=== PATIENT | female | born 1975 | race Caucasian/White ===

== ENCOUNTER 2019-05-09 08:50 | Emergency (ER) | payer BC ==
[2019-05-09] MEDS ORDERED: FENTANYL CITR 100 MCG/2 ML ONE ×2 (10:20→12:10)
[2019-05-09 10:21] LABS: Absolute Lymphocytes (CBC) 1.8 K/uL (0.7-4.9); Basophils % 0.4 % (0-1.3); Hematocrit 36.7 % (36.0-45.0); Lymphocytes % 16.1 % (15.3-44.8); MPV 8.9 fL (7.6-11.3); RBC Red Blood Cell Count 4.13 M/uL (3.86-4.86)
[2019-05-09] MEDS ORDERED: ONDANSETRON 4 MG/2 ML VIAL ONE ×2 (10:21→12:11)
[2019-05-09 10:32] LABS: Albumin 3.8 g/dL (3.4-5.0); Bilirubin Direct 0.2 mg/dL (0-0.2); Bilirubin Total 0.5 mg/dL (0.2-1.0); Potassium 3.8 mmol/L (3.5-5.1); Protein, Total 8.1 g/dL (6.4-8.2)
[2019-05-09 11:08] LABS: Urine Blood 1+ (NEG); Urine Glucose NEGATIVE (NEG); Urine Protein NEGATIVE (NEG); Urine Specific Gravity 1.025 (1.005-1.030); Urine pH 5.5 (5.0-7.0)
--- NOTE | 2019-05-09 11:24 | RAD REPORT ---
EXAM DESCRIPTION: CTAbdomen Pelvis W Contrast - 05/09/2019 11:07 am CLINICAL HISTORY: Abdominal pain. ABD PAIN COMPARISON: No comparisons TECHNIQUE: Biphasic CT imaging of the abdomen and pelvis was performed with 100 ml non-ionic IV cont rast. All CT scans are performed using dose optimization technique as appropriate and may include automated exposure control or mA/KV adjustment according to patient size. FINDINGS: The lung bases are clear. The liver, spleen, pancreas, adrenal glands and kidneys are within normal limits. 12 mm cyst right ki dney. No bowel obstruction, free air, free fluid or abscess. In the region of the splenic flexure of the co [place] moderate wall thickening and inflammation is seen. Several diverticula are present in this region of the colon. The appendix is normal. No evidence of significant lymphadenopathy. No suspicious bony findings. IMPRESSION: Mild to moderate acute diverticulitis is seen involving splenic flexure the colon. No ab scess is evident.
[2019-05-09] MEDS ORDERED: METRONIDAZOLE 500mg IVPB 500 MG/100 ML BAG IV ONE (11:58)
--- NOTE | 2019-05-09 12:52 | ER ---
Nurse's Notes [facility] Name: Deloris Roy Age: 43 yrs Sex: Female : 1975 Arrival Date: 05/09/2019 Time: 08:56 Bed 15 Private MD: Diagnosis: Diverticulitis of large intestine without perforation or abscess without bleeding Presentation: 05/09 09:11 Presenting complaint: Patient states: Chris started with constipation and bloating, iw was taking stool softeners and now pain is worse, radiating from LUQ around to back, now has diarrhea. Transition of care: patient was not received from another setting of care. Onset of symptoms was May 05, 2019. Risk Assessment: Do you want to hurt yourself or someone else? Patient reports no desire to harm self or others. Initial Sepsis Screen: Does the patient meet any 2 criteria? No. Patient's initial sepsis screen is negative. Does the patient have a suspected source of infection? No. Patient's initial sepsis screen is negative. Care prior to arrival: None. 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 - Coronavirus screen:: The patient has NOT traveled to [place], [place], or [place] in the past 14 days. Proceed with normal triage process as indicated. - Social history:: Smoking status: Patient reports the use of cigarette tobacco products, denies chronic smoking, but will smoke occasionally. - Ebola Screening: : Patient negative for fever greater than or equal to 101.5 degrees Fahrenheit, and additional compatible Ebola Virus Disease symptoms Patient denies exposure to infectious person Patient denies travel to an Ebola-affected area in the 21 days before illness onset No symptoms or risks identified at this time. Screenin:41 Abuse screen: Denies threats or abuse. Denies injuries from another. Nutritional hb screening: No deficits noted. Tuberculosis screening: No symptoms or risk factors identified. Fall Risk None identified. Assessment: 10:07 General: Appears in no apparent distress. Behavior is calm, cooperative. Pain: Pain hb currently is 7 out of 10 on a pain scale. Neuro: Level of Consciousness is awake, alert, obeys commands, Oriented to person, place, time, situation. Cardiovascular: Capillary refill < 3 seconds Patient's skin is warm and dry. Respiratory: Airway is patent Respiratory effort is even, unlabored, Respiratory pattern is regular, symmetrical, Breath sounds are clear bilaterally. GI: Abdomen is non-distended, Bowel sounds present X 4 quads. Abd is soft and non tender X 4 quads. Reports upper abdominal pain, bloating, diarrhea, nausea. : No signs and/or symptoms were reported regarding the genitourinary system. EENT: No signs and/or symptoms were reported regarding the EENT system. Derm: Skin is pink, warm \T\ dry. Musculoskeletal: No signs and/or symptoms reported regarding the musculoskeletal system. 11:00 Reassessment: Patient appears in no apparent distress at this time. No changes from hb previously documented assessment. Patient and/or family updated on plan of care and expected duration. Pain level reassessed. 12:00 Reassessment: Patient appears in no apparent distress at this time. No changes from hb previously documented assessment. Patient and/or family updated on plan of care and expected duration. Pain level reassessed. 12:25 Reassessment: Pt c/o pain 7/10, ERIC Crockett notified, repeat fentanyl and zofran hb administered as ordered. Vital Signs: 09:14 BP 123 / 67; Pulse 89; Resp 16; Temp 97.7; Pulse Ox 98% on R/A; Weight 107.5 kg; Height iw 5 ft. 6 in. (167.64 cm); Pain 7/10; 09:42 Temp 97.9(O); hb 10:57 BP 104 / 57; Pulse 82; Resp 15; Pulse Ox 100% on R/A; Pain 4/10; hb 12:40 BP 118 / 64; Pulse 80; Resp 15; Pulse Ox 100% on R/A; hb 09:14 Body Mass Index 38.25 (107.50 kg, 167.64 cm) iw ED Course: 08:56 Patient arrived in ED. mr 09:12 Triage completed. iw 09:14 Arm band placed on. iw 09:41 Isabella Walter, RN is Primary Nurse. hb 09:46 Bon Arango PA is PHCP. jr8 09:46 Destin Marion MD is Attending Physician. jr8 10:03 Lipase Sent. mh5 10:03 Hepatic Function Sent. mh5 10:03 Creatinine for Radiology Sent. mh5 10:03 CBC with Diff Sent. mh5 10:03 Basic Metabolic Panel Sent. mh5 10:03 Urine collected: clean catch specimen, clear. mh5 10:04 Patient has correct armband on for positive identification. Placed in gown. Bed in low mh5 position. Call light in reach. Side rails up X 1. Adult w/ patient. Warm blanket given. Pulse ox on. NIBP on. 10:04 Inserted saline lock: 20 gauge in right antecubital area, using aseptic technique. hb Blood collected. 11:06 CT Abd/Pelvis - IV Contrast Only In Process Unspecified. EDMS 12:51 Francisco Witt MD is Referral Physician. jr8 13:02 No provider procedures requiring assistance completed. IV discontinued, intact, hb bleeding controlled, No redness/swelling at site. Pressure dressing applied. Administered Medications: 10:23 Drug: fentaNYL (PF) 50 mcg Route: IVP; Site: right antecubital; hb 11:00 Follow up: Response: No adverse reaction hb 10:23 Drug: Zofran 4 mg Route: IVP; Site: right antecubital; hb 11:00 Follow up: Response: No adverse reaction hb 11:55 Drug: Cefepime 1 grams Route: IVPB; Rate: 200 ml/hr; Infused Over: 30 mins; Site: right hb antecubital; 12:35 Follow up: Response: No adverse reaction; IV Status: Completed infusion; IV Intake: hb 100ml 11:55 Drug: Flagyl 500 mg Volume: 100 ml; Route: IVPB; Rate: 200 ml/hr; Infused Over: 30 hb mins; Site: right antecubital; 12:35 Follow up: Response: No adverse reaction; IV Status: Completed infusion; IV Intake: hb 100ml 12:12 Drug: fentaNYL (PF) 50 mcg Route: IVP; Site: right antecubital; hb 13:00 Follow up: Response: No adverse reaction hb 12:12 Drug: Zofran 4 mg Route: IVP; Site: right antecubital; hb 13:00 Follow up: Response: No adverse reaction hb Intake: 12:35 IV: 100ml; Total: 100ml. hb 12:35 IV: 100ml; Total: 200ml. hb Outcome: 12:51 Discharge ordered by MD. dalal 13:02 Discharged to home ambulatory, with significant other. hb 13:02 Condition: stable 13:02 Discharge instructions given to patient, significant other, Instructed on discharge instructions, follow up and referral plans. medication usage, Demonstrated understanding of instructions, follow-up care, medications, Prescriptions given X 4. 13:02 Patient left the ED. hb Signatures: Dispatcher [employer] Kathy Cosme mr Laya Jeff RN RN Bon Torres PA PA jr8 Baxter, Heather, RN RN Diana Bui [facility]
--- NOTE | 2019-05-09 12:52 | EDPHYS ---
Physician Documentation [facility] Name: Deloris Roy Age: 43 yrs Sex: Female : 1975 Arrival Date: 05/09/2019 Time: 08:56 Bed 15 Private MD: ED Physician Destin Marion HPI: 05/09 10:06 This 43 yrs old Female presents to ER via Ambulatory with complaints of jr8 Abdominal Pain, Back Pain. 10:06 The patient presents with abdominal pain in the left upper quadrant, in the left lower jr8 quadrant. Onset: The symptoms/episode began/occurred acutely, 4 day(s) ago, and became worse. The symptoms radiate to left back. Associated signs and symptoms: Pertinent positives: diarrhea, nausea, Pertinent negatives: dysuria, fever, vomiting. The symptoms are described as stabbing. Modifying factors: The symptoms are alleviated by nothing, the symptoms are aggravated by nothing. Severity of pain: At its worst the pain was moderate in the emergency department the pain is unchanged. The patient has not experienced similar symptoms in the past. The patient has not recently seen a physician. 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 - Coronavirus screen:: The patient has NOT traveled to [place], [place], or [place] in the past 14 days. Proceed with normal triage process as indicated. - Social history:: Smoking status: Patient reports the use of cigarette tobacco products, denies chronic smoking, but will smoke occasionally. - Ebola Screening: : Patient negative for fever greater than or equal to 101.5 degrees Fahrenheit, and additional compatible Ebola Virus Disease symptoms Patient denies exposure to infectious person Patient denies travel to an Ebola-affected area in the 21 days before illness onset No symptoms or risks identified at this time. ROS: 10:06 Eyes: Negative for injury, pain, redness, and discharge, ENT: Negative for injury, jr8 pain, and discharge, Neck: Negative for injury, pain, and swelling, Cardiovascular: Negative for chest pain, palpitations, and edema, Respiratory: Negative for shortness of breath, cough, wheezing, and pleuritic chest pain, Back: Negative for injury and pain, MS/Extremity: Negative for injury and deformity, Skin: Negative for injury, rash, and discoloration, Neuro: Negative for headache, weakness, numbness, tingling, and seizure. 10:06 Abdomen/GI: Positive for abdominal pain, nausea, diarrhea. Exam: 10:06 Eyes: Pupils equal round and reactive to light, extra-ocular motions intact. Lids and jr8 lashes normal. Conjunctiva and sclera are non-icteric and not injected. Cornea within normal limits. Periorbital areas with no swelling, redness, or edema. ENT: Nares patent. No nasal discharge, no septal abnormalities noted. Tympanic membranes are normal and external auditory canals are clear. Oropharynx with no redness, swelling, or masses, exudates, or evidence of obstruction, uvula midline. Mucous membranes moist. Neck: Trachea midline, no thyromegaly or masses palpated, and no cervical lymphadenopathy. Supple, full range of motion without nuchal rigidity, or vertebral point tenderness. No Meningismus. Cardiovascular: Regular rate and rhythm with a normal S1 and S2. No gallops, murmurs, or rubs. Normal PMI, no JVD. No pulse deficits. Respiratory: Lungs have equal breath sounds bilaterally, clear to auscultation and percussion. No rales, rhonchi or wheezes noted. No increased work of breathing, no retractions or nasal flaring. Back: No spinal tenderness. No costovertebral tenderness. Full range of motion. Skin: Warm, dry with normal turgor. Normal color with no rashes, no lesions, and no evidence of cellulitis. MS/ Extremity: Pulses equal, no cyanosis. Neurovascular intact. Full, normal range of motion. Neuro: Awake and alert, GCS 15, oriented to person, place, time, and situation. Cranial nerves II-XII grossly intact. Motor strength 5/5 in all extremities. Sensory grossly intact. Cerebellar exam normal. Normal gait. 10:06 Abdomen/GI: Inspection: obese Bowel sounds: active, all quadrants, Palpation: soft, in all quadrants, moderate abdominal tenderness, in the left upper quadrant and left lower quadrant, mass, is not appreciated, rebound tenderness, is not appreciated, voluntary guarding, is not appreciated, involuntary guarding, is not appreciated, no appreciated organomegaly, Indicators: McBurney's point is not tender, Shepard's sign is negative, Rovsing's sign is negative, Liver: tenderness, is not appreciated. Vital Signs: 09:14 BP 123 / 67; Pulse 89; Resp 16; Temp 97.7; Pulse Ox 98% on R/A; Weight 107.5 kg; Height iw 5 ft. 6 in. (167.64 cm); Pain 7/10; 09:42 Temp 97.9(O); hb 10:57 BP 104 / 57; Pulse 82; Resp 15; Pulse Ox 100% on R/A; Pain 4/10; hb 12:40 BP 118 / 64; Pulse 80; Resp 15; Pulse Ox 100% on R/A; hb 09:14 Body Mass Index 38.25 (107.50 kg, 167.64 cm) iw MDM: 09:46 Patient medically screened. jr8 11:41 Data reviewed: vital signs, nurses notes, lab test result(s), radiologic studies, CT jr8 scan. Data interpreted: Pulse oximetry: on room air is 100 %. Interpretation: normal. Counseling: I had a detailed discussion with the patient and/or guardian regarding: the historical points, exam findings, and any diagnostic results supporting the discharge/admit diagnosis, lab results, radiology results, the need for outpatient follow up, a family practitioner, a service director, to return to the emergency department if symptoms worsen or persist or if there are any questions or concerns that arise at home. ED course: Patient feeling better. Abdomen soft and without localized peritoneal signs at this time. VS stable and without fever. Able to tolerate fluids. CT without abscess or perforation. Recommended inpatient IV antibiotic therapy but wants to try outpatient for the time being secondary to family constraints. I feel that this is reasonable at this time given labs, CT, and presentation of exam. Close return precautions given along with signs and symptoms to watch for that would indicate worsening of symptoms. Also explained dietary modifications for next several days. Patient good with this plan and knows to come back if worse . 05/09 09:47 Order name: Basic Metabolic Panel; Complete Time: 10:40 jr8 05/09 09:47 Order name: CBC with Diff; Complete Time: 10:24 jr8 05/09 09:47 Order name: Creatinine for Radiology; Complete Time: 10:40 05/09 09:47 Order name: Hepatic Function; Complete Time: 10:40 05/09 09:47 Order name: Lipase; Complete Time: 10:40 05/09 10:04 Order name: Urine Dipstick--Ancillary (enter results); Complete Time: 11:05/09 10:04 Order name: Urine --Ancillary (enter results); Complete Time: 11:05/09 10:05 Order name: CT Abd/Pelvis - IV Contrast Only; Complete Time: 11:32 05/09 09:47 Order name: IV Saline Lock; Complete Time: 10:03 05/09 09:47 Order name: Labs collected and sent; Complete Time: 10:05/09 09:47 Order name: Urine Test (obtain specimen); Complete Time: 10:05/09 09:47 Order name: Urine Dipstick-Ancillary (obtain specimen); Complete Time: 10: Administered Medications: 10:23 Drug: fentaNYL (PF) 50 mcg Route: IVP; Site: right antecubital; hb 11:00 Follow up: Response: No adverse reaction hb 10:23 Drug: Zofran 4 mg Route: IVP; Site: right antecubital; hb 11:00 Follow up: Response: No adverse reaction hb 11:55 Drug: Cefepime 1 grams Route: IVPB; Rate: 200 ml/hr; Infused Over: 30 mins; Site: right hb antecubital; 12:35 Follow up: Response: No adverse reaction; IV Status: Completed infusion; IV Intake: hb 100ml 11:55 Drug: Flagyl 500 mg Volume: 100 ml; Route: IVPB; Rate: 200 ml/hr; Infused Over: 30 hb mins; Site: right antecubital; 12:35 Follow up: Response: No adverse reaction; IV Status: Completed infusion; IV Intake: hb 100ml 12:12 Drug: fentaNYL (PF) 50 mcg Route: IVP; Site: right antecubital; hb 13:00 Follow up: Response: No adverse reaction hb 12:12 Drug: Zofran 4 mg Route: IVP; Site: right antecubital; hb 13:00 Follow up: Response: No adverse reaction hb Disposition: 16:48 Co-signature as Attending Physician, Destin Marion MD I agree with the assessment and kdr plan of care. Disposition: 05/09/19 12:51 Discharged to Home. Impression: Diverticulitis of large intestine without perforation or abscess without bleeding. - Condition is Stable. - Discharge Instructions: Diverticulitis. - Prescriptions for Zofran ODT 4 mg Oral tablet,disintegrating - take 1 tablet by ORAL route every 8 hours As needed; 12 tablet. tramadol 200 mg Oral capsule,ER biphase 24 hr 25- 75 - take 1 capsule by ORAL route once daily; 12 capsule. Cipro 500 mg Oral Tablet - take 1 tablet by ORAL route every 12 hours for 10 days; 20 tablet. Flagyl 500 mg Oral Tablet - take 1 tablet by ORAL route every 6 hours for 10 days; 40 tablet. - Medication Reconciliation Form, Thank You Letter, Antibiotic Education, Prescription Opioid Use form. - Follow up: Francisco Witt; When: 7 - 10 days; Reason: Recheck today's complaints, Continuance of care, Re-evaluation by your physician. - Problem is new. - Symptoms have improved. Signatures: Dispatcher [employer] EDMS Destin Marion MD MD [facility] Laya Jeff RN RN Bon Arango PA PA [facility] Isabella Walter RN RN Corrections: (The following items were deleted from the chart) 13:02 12:51 05/09/2019 12:51 Discharged to Home. Impression: Diverticulitis of large hb intestine without perforation or abscess without bleeding. Condition is Stable. Discharge Instructions: Diverticulitis. Prescriptions for Zofran ODT 4 mg Oral tablet,disintegrating - take 1 tablet by ORAL route every 8 hours As needed; 12 tablet, tramadol 200 mg Oral capsule,ER biphase 24 hr 25-75 - take 1 capsule by ORAL route once daily; 12 capsule, Cipro 500 mg Oral Tablet - take 1 tablet by ORAL route every 12 hours for 10 days; 20 tablet, Flagyl 500 mg Oral Tablet - take 1 tablet by ORAL route every 6 hours for 10 days; 40 tablet. and Forms are Medication Reconciliation Form, Thank You Letter, Antibiotic Education, Prescription Opioid Use. Follow up: Francisco Witt; When: 7 - 10 days; Reason: Recheck today's complaints, Continuance of care, Re-evaluation by your physician. Problem is new. Symptoms have improved. jr8
[2019-05-09 13:12] VITALS: TEMP 97.9
[2019-05-09 13:13] VITALS: O2SAT 100
[2019-05-09 13:14] VITALS: BP 118/64
== END 2019-05-09 13:02 | disposition home or self-care (01) ==
LOC: ER 08:50
DX: K57.32 Diverticulitis of large intestine without perforation or abscess without bleeding (principal); Z88.6 Allergy status to analgesic agent
CPT/HCPCS: 96365; 96368; 85025; 80048; 36415; 81025; 80076; 81003; 83690; 74177; 96375; 99284; Q9967; J3010 ×2; J2405 ×2